=== PATIENT | male | born 2005 | race African-American/Black ===

== ENCOUNTER 2024-04-24 09:05 | Emergency (ER) | payer OTHER ==
[~2024-04-24] VITALS: Ht 180.3 cm; Wt 70.3 kg
[2024-04-24 09:10] VITALS: O2SAT 99
[2024-04-24] MEDS ORDERED: HYDR-3980 PO (10:20)
== END 2024-04-24 10:31 | disposition home or self-care (01) ==
LOC: ER 09:07
DX: S61.011A Laceration without foreign body of right thumb without damage to nail, initial encounter (principal); Z79.891 Long term (current) use of opiate analgesic; W26.8XXA Contact with other sharp object(s), not elsewhere classified, initial encounter; Y93.89 Activity, other specified; Y92.89 Other specified places as the place of occurrence of the external cause; Y99.8 Other external cause status
CPT/HCPCS: A4606; A4663